=== PATIENT | male | born 1960 | race Caucasian/White ===

== ENCOUNTER 2019-04-14 12:39 | Emergency (ER) | payer BC ==
--- NOTE | 2019-04-14 12:52 | Emergency Department Record ---
History of Present Illness - General Chief Complaint: Abdominal Pain Stated Complaint: LOWER LT ABDOMINAL PAIN Time Seen by Provider: 04/14/19 12:44 Source: Patient Mode of Arrival: Ambulatory Limitations: No limitations - History of Present Illness Initial Comments: 58 yo male presents with left lower abdominal pain. The pain started abruptly about 3.5 to 4 hours ago. The pain is sharp. The pain causes nausea. No vomiting. The pain stays in the same area. He had a normal bowel movement without changes in pain. No blood or diarrhea. No hematuria. In 2014 the patient had an obstruction of the left ureter and reports he had lithotrypsy and a stent place with Dr Cha. No problems since that time. MD Complaint: Abdominal pain -: Hour(s) (3.5) Location: LLQ Radiation: LLQ Migration to: LLQ Quality: Sharp Consistency: Constant Improves With: Nothing Worsens With: Nothing Associated Symptoms: Anorexia - Related Data Previous Rx's Medication Instructions Recorded Hydrocodone/APAP 5/325Mg [Mellen 1 each PO Q6H #10 tab 04/14/19 5Mg/325Mg] Ondansetron [Zofran Odt] 4 mg PO Q8H #15 tab.rapdis 04/14/19 Allergies Allergy/AdvReac Type Severity Reaction Status Date / Time Penicillins Allergy PT UNSURE Verified 06/30/15 14:34 OF REACTION Review of Systems Constitutional: Denies: Chills, Fever, Malaise, Weakness Eyes: Denies: Eye discharge ENT: Denies: Congestion, Throat pain Respiratory: Denies: Cough, Dyspnea, Hemoptysis, Wheezes Cardiovascular: Denies: Chest pain, Syncope Endocrine: Denies: Fatigue Gastrointestinal: Reports: Abdominal pain, Nausea, Vomiting. Denies: Diarrhea Genitourinary: Denies: Dysuria, Frequency, Hematuria Musculoskeletal: Reports: Back pain. Denies: Arthralgia, Myalgia Skin: Denies: Bruising, Rash Neurological: Denies: Headache, Numbness, Weakness Psychiatric: Denies: Anxiety Hematological/Lymphatic: Denies: Easy bleeding, Easy bruising Past Medical History - SOCIAL HISTORY Smoking Status: Current every day smoker - RESPIRATORY Hx Respiratory Disorders: No - CARDIOVASCULAR Hx Cardio Disorders: No - NEURO Hx Neuro Disorders: No - GI Hx GI Disorders: No - Hx Genitourinary Disorders: Yes Hx Kidney Stones: Yes - ENDOCRINE Hx Endocrine Disorders: No - MUSCULOSKELETAL Hx Musculoskeletal Disorders: No - PSYCH Hx Psych Problems: No - HEMATOLOGY/ONCOLOGY Hx Hematology/Oncology Disorders: No Family Medical History Hx Diabetes: Mother, Grandparents Hx HTN: Father, Grandparents Physical Exam - General General Appearance: Alert, Oriented x3, Cooperative, No acute distress Limitations: No limitations - Head Head exam: Atraumatic, Normal inspection - Eye Eye exam: Normal appearance, PERRL. negative: Conjunctival injection, Scleral icterus - ENT ENT exam: Normal exam Ear exam: Normal external inspection Nasal Exam: Normal inspection Mouth exam: Normal external inspection - Neck Neck exam: Normal inspection - Respiratory Respiratory exam: Normal lung sounds bilaterally. negative: Respiratory distress - Cardiovascular Cardiovascular Exam: Regular rate, Normal rhythm, Normal heart sounds - GI/Abdominal GI/Abdominal exam: Soft. negative: Distended, Guarding, Tenderness - Rectal Rectal exam: Deferred - exam: Deferred - Extremities Extremities exam: Normal inspection - Back Back exam: Reports: CVA tenderness (L), Full ROM, Tenderness. Denies: CVA tenderness (R), Muscle spasm, Paraspinal tenderness - Neurological Neurological exam: Alert, Oriented X3 - Psychiatric Psychiatric exam: Normal affect, Normal mood. negative: Agitated, Anxious - Skin Skin exam: Dry, Intact, Normal color, Warm Course - Reevaluation(s) Reevaluation #1: 04/14/19 13:10 The CBC was reviewed and is normal 04/14/19 13:35 The labs results were reviewed There are no acute significant abnormalities of the CBC There are no acute significant abnormalities of the CMP The UA was reviewed. No signs of infection or significant acute abnormality 04/14/19 14:03 CT demonstrates a 3.5mm proximal left ureteral stone. Other bilateral intr arenal stones. Other smaller 2.8mm upstream stone. The patient was given the results. Currently his pain is controlled. He was referred to the urology clinic. He had seen Dr Cha in the past. We discussed home care, reasons to return or be immediately seen. His pain is well controlled at [place] 04/14/19 14:13 The patient was prescribed a controlled substance. The prescription does not exceed three days. MAPS was reviewed at the time of the prescripts The topics of abuse, addiction, over dose, dangers of multiple medications, disposal, and illegal distribution were discussed with the patient. The patient verbalized understanding of the risks of the medication being provided Medical Decision Making - Lab Data Result diagrams: 04/14/19 13:00 04/14/19 13:00 Disposition Disposition: Discharge Clinical Impression: Renal colic on left side Disposition: Home, Self-Care Condition: (1) Good Instructions: Renal Colic (ED) Additional Instructions: Call your doctor for the next available follow up appointment Review this ER visit and the tests performed with your family doctor Return to the ER for a recheck if worse, any new concerns or questions Take the prescriptions provided as directed Prescriptions: Hydrocodone/APAP 5/325Mg [Mellen 5Mg/325Mg] 1 each PO Q6H #10 tab Ondansetron [Zofran Odt] 4 mg PO Q8H #15 tab.rapdis Referrals: [facility] [Provider Group] Cristiano Kim M.D. [MEDICAL DOCTOR] - Forms: Patient Portal Access Time of Disposition: 14:06 Quality - Quality Measures Quality Measures: N/A - Blood Pressure Screening Does Patient Have Any of the Following: No Blood Pressure Classification: Hypertensive Reading Systolic Measurement: 142 Diastolic Measurement: 74 Screening for High Blood Pressure: < Pre-Hypertensive BP, F/U Documented > [G8950] Pre-Hypertensive Follow-up Interventions: Referral to alternative/primary care provider.
[2019-04-14] MEDS ORDERED: 0.9 % SODIUM CHLORIDE 1,000 ML BAG IV ONE (12:56)
[2019-04-14] MEDS ORDERED: ACETAMINOPHEN 1,000 MG/100 ML BTL IVPB ONE (12:56)
[2019-04-14] MEDS ORDERED: ONDANSETRON HCL IV 4 MG/2 ML VIAL IVP ONE (12:56)
[2019-04-14 13:09] LABS: HEMATOCRIT 44.5 % (42.0-52.0); MEAN CELL VOLUME 91.9 fl (81-97); MEAN CORPUSCULAR HGB CONC 33.7 g/dl (32-36); MEAN PLATELET VOLUME 9.7 fl (7.4-10.4); PLATELET COUNT 229 K/uL (130-400); RED BLOOD COUNT 4.84 M/uL (4.40-5.70); RED CELL DISTRIBUTION WIDTH 12.8 % (11.5-14.5)
[2019-04-14 13:13] LABS: URINE APPEARANCE CLEAR; URINE BILIRUBIN NEGATIVE (NEGATIVE); URINE BLOOD SMALL (NEGATIVE); URINE COLOR YELLOW; URINE GLUCOSE (UA) NEGATIVE (NEGATIVE); URINE KETONE NEGATIVE (NEGATIVE); URINE LEUKOCYTE ESTERASE NEGATIVE (NEGATIVE); URINE NITRITE NEGATIVE (NEGATIVE); URINE PROTEIN TRACE (NEGATIVE); URINE UROBILINOGEN 0.2 E.U./dL (0.20 - 1.00)
[2019-04-14 13:23] LABS: BLOOD UREA NITROGEN 14 mg/dL (6-20); CREATININE 1.1 mg/dL (0.7-1.2); EST GLOMERULAR FILTRATION RATE > 60 mL/min; LIPASE 23 U/L (13-60); TOTAL PROTEIN 7.5 g/dL (6.6-8.7); URINE EPITHELIAL CELLS NONE SEEN (FEW); URINE RBC 0 - 2 (NONE SEEN); URINE WBC NONE SEEN (0-2/hpf)
[2019-04-14 13:25] LABS: GLUCOSE,RANDOM 105 mg/dL (74-109)
[2019-04-14 13:28] LABS: ALB/GLOB RATIO 1.6 (1.1-1.8); ALBUMIN 4.6 g/dL (4.0-5.0); ALKALINE PHOSPHATASE 90 U/L (40-129); ALT/SGPT 33 U/L (<41); AST/SGOT 28 U/L (10.0-50.0)
[2019-04-14] MEDS ORDERED: KETOROLAC 30 MG/ML VIAL IVP ONE (13:36)
--- NOTE | 2019-04-16 17:19 | CT SCAN REPORT ---
EXAM: CT SCAN ABDOMEN/PELVIS WO CONTRAST HISTORY: SUDDEN ONSET OF LOCALIZED LEFT LOWER QUADRANT ABDOMINAL PAIN. RENAL STONE HISTORY. TECHNIQUE: Thin-collimation helical CT examination of the abdomen and pelvis is performed without oral or intravenous contrast administration. Lack of oral and IV contrast utilization limits evaluation of the bowel and solid viscera respectively. COMPARISON: CT abdomen and pelvis without contrast dated 07/26/2015. FINDINGS: There is mild dependent atelectasis in each lung base. The visualized lung bases are otherwise clear. No pleural or pericardial effusion. The heart is not enlarged. A small sliding-type hiatal hernia is present. A, too small to characterize, hypodense lesion is again noted in the superior liver near the junction of the right and left lobes measuring 5 mm. This is not significantly changed in the interval and is likely a benign cyst or hemangioma. A similar tiny focus is again noted within the high posterior segment of the right liver lobe, unchanged. A tiny hypodensity in the medial segment of the left liver lobe near the gallbladder fossa is not as well visualized on the prior examination. These are, however, likely cysts or hemangiomata. The liver is otherwise normal in appearance. The spleen, pancreas, and bilateral adrenal glands are normal in appearance. The gallbladder is unremarkable and no biliary ductal dilatation is seen. As demonstrated on multiple prior examinations, there are areas of fluid density prominence enlarging each renal sinus consistent with the presence of peripelvic renal cysts. There is, however, evidence of left hydronephrosis down to the level of the proximal left ureter where there is an obstructing 3.5 mm calculus, which is new in the interval. Just proximal to this, is a nonobstructing calculus within the proximal left ureter measuring 2.8 mm. There is also a possible new nonobstructing calculus within the dependent left renal collecting system pelvis measuring 5.3 mm in diameter. Multiple bilateral nonobstructing renal calculi are present. The largest on the left is located anteriorly at the midlevel measuring 3 mm. The largest on the right measures approximately 1-2 mm. No definite right-sided obstructive uropathy. No definite new renal mass. No intra-abdominal nor retroperitoneal lymphadenopathy. The abdominal aorta and iliac arteries are without aneurysmal dilatation. No pelvic mass nor lymphadenopathy. Evaluation of the urinary bladder is limited by lack of distention. No gross bowel dilatation nor bowel wall thickening. There is mild diverticulosis of the left colon without diverticulitis. The appendix is visualized and normal in appearance. Fat density prominence is redemonstrated within the left inguinal canal consistent with a small fat-filled inguinal hernia sac. No new lytic or blastic bone lesion. IMPRESSION: 1. MULTIPLE BILATERAL PERIPELVIC RENAL CYSTS REDEMONSTRATED. 2. A 3.5 MM OBSTRUCTING CALCULUS IN THE PROXIMAL LEFT URETER CAUSING MILD TO MODERATE HYDROURETERONEPHROSIS. JUST PROXIMAL TO THIS, IS A 2.8 MM NONOBSTRUCTING CALCULUS AND THERE IS LIKELY A NONOBSTRUCTING CALCULUS IN THE DEPENDENT LEFT RENAL PELVIS MEASURING 5.3 MM. 3. BILATERAL NEPHROLITHIASIS. 4. COLONIC DIVERTICULOSIS WITHOUT EVIDENCE OF DIVERTICULITIS. 5. SMALL FAT-FILLED LEFT INGUINAL HERNIA AGAIN QUESTIONED. 6. SEVERAL, TOO SMALL TO CHARACTERIZE, HYPODENSE LESIONS WITHIN THE LIVER ARE NONSPECIFIC BUT LIKELY CYSTS. 7. SMALL SLIDING-TYPE HIATAL HERNIA. JOB NUMBER: [id number] MTDD
== END 2019-04-14 15:00 | disposition home or self-care (01) ==
LOC: ER 12:39
DX: N20.1 Calculus of ureter (principal); Z87.442 Personal history of urinary calculi; F17.210 Nicotine dependence, cigarettes, uncomplicated
CPT/HCPCS: 74176; 80053; 81001; 83690; 85027; 96374; 96375; 99284; J2405; J7030